=== PATIENT | female | born 1970 | race African-American/Black ===

== ENCOUNTER → 2018-01-04 | Outpatient (CLI) | payer OTHER ==
[~2018-01-04] MED LIST: ADDERALL 30 MG30 MG PO; ADIPEX-P37.5 M1 PO; AMLODIPINE BESY10 MG PO; ASPIRIN81 M2 PO; BENADRYL25 MG PO; CIPROFLOXACIN500 M3 PO; CLEOCIN HCL300 MG PO; CLIMARA PRO PA1 EACH; CYCLOBENZAPRINE5 MG PO; FLAGYL500 MG PO; HYDROCODON-ACE1 EAC7 PO; IBUPROFEN 600600 M1; IBUPROFEN 800800 M1; IBUPROFEN 800800 MG PO; NORCO 5-325 TA1 EACH PO; NORVASC10 MG PO; PERCOCET 10-321 EACH; PHENTERMINE; PREDNISONE 20 M20 MG PO; PROZAC 20 MG20 MG PO; TRAMADOL 50 MG50 MG PO; WELLBUTRIN SR200 MG PO; ZESTORETIC 20-1 EAC3
== END ==
LOC: SLEEPLAB 16:25
DX: G47.33 Obstructive sleep apnea (adult) (pediatric) (principal)

== ENCOUNTER 2018-12-23 20:51 | Inpatient (IN) | payer OTHER ==
[~2018-12-23] VITALS: Ht 157.5 cm; Wt 142.4 kg
[2018-12-23 20:57] VITALS: BP 171/102
[2018-12-23] MEDS ORDERED: ALDACTONE50 MG PO (21:40)
[2018-12-23] MEDS ORDERED: PROZAC20 MG PO (21:41)
[2018-12-23 22:12] LABS: ABSOLUTE NEUTROPHILS 4.2 thou/uL (1.4-8.2); BASOPHILS 1.2 % (0.0-2.0); EOSINOPHILS 0.9 % (0.0-3.0); HEMATOCRIT 37.1 % (37.0-47.0); HEMOGLOBIN 12.2 gm/dL (12.0-15.0); LYMPHOCYTES 47.4 % (24.0-44.0); MCH 26.9 pg (26.0-34.0); MCHC 32.9 g/dL (28.0-37.0); MCV 81.9 fL (80.0-100.0); MONOCYTES 4.7 % (1.0-8.0); PLATELET COUNT 274 thou/uL (150-400); POLYS 45.8 % (36.0-66.0); RBC 4.53 mil/uL (4.20-5.00); RDW 14.8 % (10.5-14.5); WBC 9.3 thou/uL (4.0-11.0)
[2018-12-23 22:19] LABS: ANION GAP 7 mmol/L (7-16); BUN 9 mg/dL (7-18); CALCIUM 8.6 mg/dL (8.5-10.1); CHLORIDE 105 mmol/L (98-107); CO2 31 mmol/L (21-32); CREATININE 0.7 mg/dL (0.6-1.0); GLUCOSE 104 mg/dL (74-106); POTASSIUM 3.2 mmol/L (3.5-5.1); SODIUM 143 mmol/L (136-145)
[2018-12-23 22:27] LABS: SGOT 18 U/L (15-37); SGPT 20 U/L (30-65); TOTAL BILIRUBIN < 0.1 mg/dL (<0.1-1.0); TOTAL PROTEIN 7.1 g/dL (6.4-8.2); TROPONIN-I <0.06 ng/mL (<0.06)
[2018-12-24] VITALS (7 sets, daily range): BP systolic 149–168; BP diastolic 75–98
--- NOTE | 2018-12-24 03:03 | NUR ---
PT ARRIVED UNIT AT ABOUT 0110 FROM ED. PT A/OX4, VITAL SIGNS STABLE, SBP IN THE 160'S. PT COMPLAINED OF PERSISTENT CHEST PAIN AND A THROBBING HEADACHE. NITRO DRIP RESTARTED TO HELP WITH BP AND CHEST PAIN. UNLOAD ASSOCIATE NOTIFIED AND PAIN MEDICATION ORDERED TO HELP WELL. ADMISSION COMPLETED, CONSENTS SIGNED. CALL LIGHT AND PERSONAL BELONGINGS WITHIN REACH. 2L O2 NC APPLIED FOR COMFORT WELL. PT RESTING COMFROTABLY IN BED. EDUCATED TO REPORT CHEST PAIN IF WORSENS OR PERSISTS. WILL CONTINUE TO CLOSELY MONITOR.
[2018-12-24 04:28] LABS: ANION GAP 8 mmol/L (7-16); BUN 8 mg/dL (7-18); CALCIUM 8.3 mg/dL (8.5-10.1); CHLORIDE 105 mmol/L (98-107); CHOLESTEROL 156 mg/dL (<200); CO2 28 mmol/L (21-32); CREATININE 0.6 mg/dL (0.6-1.0); GLUCOSE 105 mg/dL (74-106); HDL CHOLESTEROL 45 mg/dL (>40); LDL CHOLESTEROL 103 mg/dL (<100); POTASSIUM 3.1 mmol/L (3.5-5.1); SODIUM 141 mmol/L (136-145); TC:HDL 3.5 Ratio (Not establshd); TRIGLYCERIDE 42 mg/dL (<150); TROPONIN-I <0.06 ng/mL (<0.06); VLDL 8 mg/dL (<40)
[2018-12-24 04:30] LABS: SERUM ASSESSMENT Clear
--- NOTE | 2018-12-24 08:20 | EKG ---
[address] [address] ELECTROCARDIOGRAM REPORT Name: MARSHALL ESCOBAR Room #: 207-P ADM IN M.R.#: [id number] ������������������ Admission: 12/23/18 ������������������ Attend Phys: Omar Lou MD Discharge: ������������������ Date of : 74 Report #: [id number] ����������������������������������������������������������������� [id number] THIS REPORT FOR: //name// [facility] ED Test Date: 2018-12-23 Test Time: 21:02:33 Pat Name: MARSHALL ESCOBAR Department: Room: 207 Gender: F Division Chair: KKMIGUEL : 1970 Requested By: Holly Cuello Order Number: [id number] MD: Panchito Boyd Measurements Intervals [place] Rate: 77 P: 36 VT: 125 QRS: -1 QRSD: 89 T: 137 QT: 369 QTc: 418 Interpretive Statements Sinus rhythm LVH with secondary repolarization abnormality Inferior infarct, old Compared to ECG 02/16/2013 11:28:25 Early repolarization now present Myocardial infarct finding now present T-wave abnormality no longer present Electronically Signed On 12-24-2018 8:19:56 CDT by Panchito Boyd [email or web address] ��������������������������������������������� <ELECTRONICALLY SIGNED> ���������������������������������������� By: Panchito Boyd MD ��������������������������������������������� 12/24/18818 01 01 Panchito Boyd MD /EPI
--- NOTE | 2018-12-24 08:25 | EKG ---
[address] [address] ELECTROCARDIOGRAM REPORT Name: MARSHALL ESCOBAR Room #: 207-P ADM IN M.R.#: [id number] ������������������ Admission: 12/23/18 ������������������ Attend Phys: Omar Lou MD Discharge: ������������������ Date of : 74 Report #: [id number] ����������������������������������������������������������������� [id number] THIS REPORT FOR: //name// [facility] Test Date: 2018-12-24 Test Time: 08:04:20 Pat Name: MARSHALL ESCOBAR Department: Room: 207 Gender: F Transcribing Machine Operator: MAGUI : 1970 Requested By: Rhianna Joiner Order Number: [id number] MD: Panchito Boyd Measurements Intervals [place] Rate: 64 P: 37 ND: 133 QRS: 5 QRSD: 89 T: 173 QT: 449 QTc: 464 Interpretive Statements Sinus arrhythmia LVH by voltage Abnrm T, consider ischemia, anterolateral lds Compared to ECG 02/16/2013 11:28:25 Possible ischemia now present Sinus rhythm no longer present T-wave abnormality no longer present Electronically Signed On 12-24-2018 8:24:58 CDT by Panchito Boyd [email or web address] ��������������������������������������������� <ELECTRONICALLY SIGNED> ���������������������������������������� By: Panchito Boyd MD ��������������������������������������������� 12/24/1824 3 3 Panchito Boyd MD /EPI
--- NOTE | 2018-12-24 11:56 | 2DMMODE ---
[facility] [address] [place] [address] 2 D/M-MODE ECHOCARDIOGRAM Name: MARSHALL ESCOBAR Sidra Room #: 207-P [facility] IN .R.#: [id number] ������������� Admission: 12/23/18 ������������� Attend Phys: Omar Lou MD Discharge: ��� ������������� ��� Date of : 74 Date of Service: 12/24/18 1156 �� Report #: [id number] �������� ��������������������������������������������[id number] THIS REPORT FOR: //name// APPROVED REPORT Study performed: 12/24/2018 11:03:23 EXAM: Comprehensive 2D, Doppler, and color-flow Echocardiogram Patient Location: Echo lab [facility] Status: routine BSA: 2.29 HR: 64 bpm BP: 151/83 mmHg Rhythm: NSR Other Information Study Quality: Good Indications Chest Pain Hypertension/HDD Morbid obesity 2D Dimensions RVDd: 32.88 mm IVSd: 13.18 (7-11mm) LVOT Diam: 20.62 (18-24mm) LVDd: 53.23 mm PWd: 13.15 (7-11mm) Ascending Ao: 31.36 (22-36mm) LVDs: 34.96 (25-40mm) Aortic Root: 34.03 mm IVC: 13.00 mm Volumes Left Atrial Volume (Systole) Single Plane 4CH: 67.49 mL Single Plane 2CH: 73.81 mL LA ESV Index: 34.00 mL/m2 Aortic Valve AoV Peak Be.: 1.73 m/s AO Peak Gr.: 11.94 mmHg LVOT Max P.70 mmHg LVOT Max V: 1.19 m/s MARLEE Vmax: 2.30 cm2 Mitral Valve E/A Ratio: 1.4 [facility] [address] [place] [address] 2 D/M-MODE ECHOCARDIOGRAM Name: MARSHALL ESCOBAR Room #: 207-P [facility] IN [facility]#: [id number] ������������� Admission: 12/23/18 ������������� Attend Phys: Omar Lou MD Discharge: ��� ������������� ��� Date of : 74 Date of Service: 12/24/18 1156 �� Report #: [id number] �������� ��������������������������������������������[id number] MV Decel. Time: 254.00 ms MV E Max Be.: 1.00 m/s MV A Be.: 0.72 m/s MV PHT: 73.66 ms IVRT: 83.04 ms Pulmonary Valve PV Peak Be.: 0.93 m/s PV Peak Gr.: 3.49 mmHg Pulmonary Vein P Vein S: 0.61 m/s P Vein A: 0.29 m/s P Vein D: 0.39 m/s P Vein A Dur.: 124.6 msec P Vein S/D Ratio: 1.56 Left Ventricle The left ventricle is normal size. There is normal LV segmental wall motion. Mild concentric left ventricular hypertrophy. The left ventricular systolic function is normal. The left ventricular ejection fraction is within the normal range. LVEF is 60-65%. The left ventricular diastolic function is normal. Right Ventricle The right ventricle is normal size. The right ventricular systolic function is normal. Atria The left atrium size is normal. The right atrium size is normal. Aortic Valve The aortic valve is normal in structure. No aortic regurgitation is present. There is no aortic valvular stenosis. Mitral Valve The mitral valve is normal in structure. Mild mitral regurgitation. No evidence of mitral valve stenosis. Tricuspid Valve The tricuspid valve is normal in structure. There is no tricuspid valve regurgitation noted. Pulmonic Valve The pulmonary valve is normal in structure. There is no pulmonic valvular regurgitation. [employer] [facility] [address] [place] [address] 2 D/M-MODE ECHOCARDIOGRAM Name: MARSHALL ESCOBAR Room #: 207-P [facility] IN .R.#: [id number] ������������� Admission: 12/23/18 ������������� Attend Phys: Omar Lou MD Discharge: ��� ������������� ��� Date of : 74 Date of Service: 12/24/18 1156 �� Report #: [id number] �������� ��������������������������������������������[id number] The aortic root is normal in size. IVC is normal in size and collapses >50% with inspiration. Pericardium There is no pericardial effusion. <Conclusion> The left ventricle is normal size. LVEF is 60-65%. The aortic valve is normal in structure. The mitral valve is normal in structure. Mild mitral regurgitation. The tricuspid valve is normal in structure. The pulmonary valve is normal in structure. There is no pericardial effusion. ��������������������������������������������� <ELECTRONICALLY SIGNED> ���������������������������������������� By: Miquel Mckeon MD ��������������������������������������������� 12/24/18 1156 1156 1156 Miquel Mckeon MD /INF
--- NOTE | 2018-12-24 17:28 | NUR ---
ASSUMED CARE OF PT AT SHIFT CHANGE. ASSESSMENTS CHARTED. MEDS GIVEN PER NOV. PT ALERT AND ORIENTED, VSS- BP ELEVATED CARDS AWARE. C/O PAIN, MANAGED WITH IV PAIN MEDS. PT K LOW THIS AM, REPLACED WITH PO POTASSIUM PER NOV. PT UP X1- SBA TO BATHROOM, TOLERATING WELL, VOIDING ADEQUATELY. PLAN IS FOR SECOND PART OF STRESS TEST IN AM. DENIES CONCERNS AT THIS TIME. WILL CONT TO MONITOR AND FOLLOW POC.
[2018-12-25 00:10] LABS: GLYCOHEMOGLOBIN (HGB A1C) 5.8 % (4.8-5.6)
--- NOTE | 2018-12-25 03:15 | NUR ---
ASSUMED PT CARE AT 1900. PT A/OX4, VITAL SIGNS STABLE, ASSESSMENT CHARTED. NO COMPLAINTS OF PAIN/CHEST PAIN. NPO AFTER MIDNIGHT FOR STRESS TEST. RESTED WELL THROUGH THE NIGHT. PROGRESSING TOWARD PLAN OF CARE. WILL CONTINUE TO MONITOR.
[2018-12-25 04:28] VITALS: BP 163/84
[2018-12-25 07:20] VITALS: BP 159/82
[2018-12-25 11:25] VITALS: BP 155/94
[2018-12-25] MEDS ORDERED: CELEBREX 200 M200 M1 PO (11:40)
[2018-12-25] MEDS ORDERED: COZAAR 50 MG TA50 M1 PO (11:40)
[2018-12-25 12:03] VITALS: BP 159/82
[2018-12-25 13:53] VITALS: BP 159/82
--- NOTE | 2018-12-25 14:28 | NUR ---
ASSUMED CARE OF PT AT SHIFT CHANGE. ASSESSMENTS CHARTED. MEDS GIVEN PER NOV. PT ALERT AND ORIENTED, VSS, BP ELEVATED CARDS AWARE. PT C/O CHEST PAIN AT 10/26, DENIES NEED FOR PAIN MEDS. STRESS TEST BACK- SEE RESULTS. DC ORDERS ACKNOWLEDGED AND IMPLEMENTED. DC PAPERWORK REVIEWED WITH PT, COMMUNICATES UNDERSTANDING. TELE REMOVED, IV REMOVED. PT LEFT UNIT WITH ALL BELONINGS ACCOMPANIED BY SON.
== END 2018-12-25 14:27 | disposition home or self-care (01) | DRG 206 ==
LOC: ER 20:51 → 2N 22:49 → EROBS 22:49 → 2N 12-24 01:08 → ENTRNSPT 12-25 14:16 → EDTRNSPTSTS 12-25 14:22 → 2N 12-25 14:27
PROVIDERS: Nurse Practitioner Family; Student in an Organized Health Care Education/Training Program; ADMIT Hospitalist
DX: M94.0 Chondrocostal junction syndrome [Tietze] (principal); Z68.43 Body mass index [BMI] 50.0-59.9, adult; I10 Essential (primary) hypertension; F41.9 Anxiety disorder, unspecified; F32.9 Major depressive disorder, single episode, unspecified; E66.9 Obesity, unspecified; I16.0 Hypertensive urgency; G47.33 Obstructive sleep apnea (adult) (pediatric); E87.6 Hypokalemia; Z90.721 Acquired absence of ovaries, unilateral; Z90.710 Acquired absence of both cervix and uterus; Z88.8 Allergy status to other drugs, medicaments and biological substances; Z82.49 Family history of ischemic heart disease and other diseases of the circulatory system; Z83.3 Family history of diabetes mellitus; Z79.82 Long term (current) use of aspirin; Z79.899 Other long term (current) drug therapy
CPT/HCPCS: 10081